=== PATIENT | male | born 1940 | race Caucasian/White ===

== ENCOUNTER → 2017-01-19 | Outpatient (CLI) | payer OTHER, MEDICARE ==
[2015-09-30 14:25] VITALS: BP 124/59
[2017-01-19 08:54] LABS: BASOPHILS # (AUTO) 0.1 X10^3/uL (0.0-0.1); BASOPHILS % (AUTO) 1.1 % (0.2-1.0); EOSINOPHILS # (AUTO) 0.1 x10^3/uL (0.0-0.2); EOSINOPHILS % (AUTO) 2.8 % (0.9-2.9); HEMATOCRIT 35.1 % (42.0-54.0); HEMOGLOBIN 11.8 g/dL (13.5-18.0); LYMPHOCYTES % (AUTO) 41.3 % (21.0-51.0); MEAN CORPUSCULAR HEMOGLOBIN 32.4 pg (27.0-34.0); MEAN CORPUSCULAR HGB CONC 33.7 g/dL (33.0-35.0); MEAN PLATELET VOLUME 7.8 fL (7.4-11.0); MONOCYTES # (AUTO) 0.4 x10^3/uL (0.3-0.8); NEUTROPHILS # (AUTO) 2.3 x10^3/uL (2.2-4.8); NEUTROPHILS % (AUTO) 46.8 % (42.0-75.0); PLATELET COUNT 183 X10^3/uL (150.0-450.0); RED BLOOD COUNT 3.65 X10^6/uL (4.7-6.0); RED CELL DISTRIBUTION WIDTH 13.7 % (11.6-16.5); WHITE BLOOD COUNT 4.9 X10^3/uL (3.6-10.0)
[2017-01-19 09:01] LABS: ALANINE AMINOTRANSFERASE 31 Units/L (12-78); ALBUMIN 3.6 g/dL (3.4-5.0); ALKALINE PHOSPHATASE 67 Units/L (46-116); ASPARTATE AMINO TRANSFERASE 24 Units/L (15-37); BLOOD UREA NITROGEN 18 mg/dL (7-18); CALCIUM 9.1 mg/dL (8.5-10.1); CARBON DIOXIDE 29.2 mmol/L (21-32); CHLORIDE 104 mmol/L (98-107); CHOL/HDL RATIO 5.1 (0.0-5.0); CHOLESTEROL 163 mg/dL (0-200); COR NA(FOR HYPERGLY) 144 mmol/L (136-145); CREATININE 1.42 mg/dL (0.70-1.30); GLUCOSE 127 mg/dL (65-99); HDL CHOLESTEROL 32 mg/dL (40-60); PHOSPHORUS 3.9 mg/dL (2.6-4.7); SODIUM 143 mmol/L (136-145); TOTAL PROTEIN 7.2 g/dL (6.4-8.2); TRIGLYCERIDES 138 mg/dL (0-150); URIC ACID 5.7 mg/dL (3.5-7.2); eGFR BLACK RACES > 60 (>60); eGFR NON BLACK RACES 51 (>60)
== END ==
LOC: LAB 08:01
PROVIDERS: ATTEND Obstetrics & Gynecology Obstetrics
DX: I12.9 Hypertensive chronic kidney disease with stage 1 through stage 4 chronic kidney disease, or unspecified chronic kidney disease (principal); N18.3 Chronic kidney disease, stage 3 (moderate)
CPT/HCPCS: 36415; 80053; 80061; 80069; 84550; 85025

== ENCOUNTER → 2017-04-20 | Outpatient (CLI) | payer OTHER, MEDICARE ==
[2015-09-30 14:25] VITALS: BP 124/59
[2017-04-20 08:48] LABS: ALANINE AMINOTRANSFERASE 32 Units/L (12-78); ALBUMIN 3.7 g/dL (3.4-5.0); ALKALINE PHOSPHATASE 81 Units/L (46-116); ASPARTATE AMINO TRANSFERASE 25 Units/L (15-37); BLOOD UREA NITROGEN 16 mg/dL (7-18); CALCIUM 9.3 mg/dL (8.5-10.1); CARBON DIOXIDE 29.1 mmol/L (21-32); CHLORIDE 104 mmol/L (98-107); CHOL/HDL RATIO 3.7 (0.0-5.0); CHOLESTEROL 153 mg/dL (0-200); GLUCOSE 109 mg/dL (65-99); HDL CHOLESTEROL 41 mg/dL (40-60); SODIUM 142 mmol/L (136-145); TOTAL PROTEIN 7.3 g/dL (6.4-8.2); TRIGLYCERIDES 112 mg/dL (0-150); eGFR BLACK RACES > 60 (>60); eGFR NON BLACK RACES > 60 (>60)
[2017-04-20 08:51] LABS: HEMOGLOBIN A1C 5.9 % (4.5-6.2)
[2017-04-20 08:53] LABS: BASOPHILS % (AUTO) 0.9 % (0.2-1.0); EOSINOPHILS # (AUTO) 0.2 x10^3/uL (0.0-0.2); EOSINOPHILS % (AUTO) 3.2 % (0.9-2.9); HEMATOCRIT 33.7 % (42.0-54.0); HEMOGLOBIN 11.6 g/dL (13.5-18.0); LYMPHOCYTES # (AUTO) 1.9 X10^3/uL (1.3-2.9); LYMPHOCYTES % (AUTO) 38.7 % (21.0-51.0); MEAN CORPUSCULAR HEMOGLOBIN 33.1 pg (27.0-34.0); MEAN CORPUSCULAR HGB CONC 34.6 g/dL (33.0-35.0); MEAN CORPUSCULAR VOLUME 95.8 fL (80.0-100.0); MEAN PLATELET VOLUME 7.8 fL (7.4-11.0); MONOCYTES # (AUTO) 0.4 x10^3/uL (0.3-0.8); MONOCYTES % (AUTO) 7.8 % (0.0-13.0); NEUTROPHILS # (AUTO) 2.5 x10^3/uL (2.2-4.8); NEUTROPHILS % (AUTO) 49.4 % (42.0-75.0); PLATELET COUNT 153 X10^3/uL (150.0-450.0); RED BLOOD COUNT 3.51 X10^6/uL (4.7-6.0); RED CELL DISTRIBUTION WIDTH 13.1 % (11.6-16.5)
== END ==
LOC: LAB 07:17
PROVIDERS: ATTEND Obstetrics & Gynecology Obstetrics
DX: E11.9 Type 2 diabetes mellitus without complications (principal); Z86.010 Personal history of colon polyps
CPT/HCPCS: 36415; 80053; 80061; 83036; 83525; 85025

== ENCOUNTER → 2017-04-23 | Outpatient (CLI) | payer OTHER, MEDICARE ==
[2015-09-30 14:25] VITALS: BP 124/59
[2017-04-23 20:18] LABS: CREATININE,URINE 62.31 mg/dL (40-278); MICROALBUMIN,URINE 15.2 mg/L
== END ==
LOC: LAB 19:36
PROVIDERS: ATTEND Obstetrics & Gynecology Obstetrics
DX: E11.9 Type 2 diabetes mellitus without complications (principal)
CPT/HCPCS: 82043

== ENCOUNTER → 2017-04-27 | Outpatient (CLI) | payer OTHER, MEDICARE ==
[2015-09-30 14:25] VITALS: BP 124/59
== END ==
LOC: LAB 05:52
PROVIDERS: ATTEND Internal Medicine Gastroenterology
DX: Z86.010 Personal history of colon polyps (principal)
CPT/HCPCS: 82270

== ENCOUNTER → 2017-05-18 | Outpatient (CLI) | payer OTHER, MEDICARE ==
[2015-09-30 14:25] VITALS: BP 124/59
[2017-05-18 06:52] LABS: BASOPHILS # (AUTO) 0.1 X10^3/uL (0.0-0.1); BASOPHILS % (AUTO) 1.2 % (0.2-1.0); EOSINOPHILS # (AUTO) 0.1 x10^3/uL (0.0-0.2); EOSINOPHILS % (AUTO) 1.6 % (0.9-2.9); HEMATOCRIT 31.4 % (42.0-54.0); HEMOGLOBIN 10.9 g/dL (13.5-18.0); LYMPHOCYTES # (AUTO) 3.5 X10^3/uL (1.3-2.9); LYMPHOCYTES % (AUTO) 61.6 % (21.0-51.0); MEAN CORPUSCULAR HGB CONC 34.5 g/dL (33.0-35.0); MEAN CORPUSCULAR VOLUME 95.6 fL (80.0-100.0); MEAN PLATELET VOLUME 7.2 fL (7.4-11.0); MONOCYTES # (AUTO) 0.4 x10^3/uL (0.3-0.8); MONOCYTES % (AUTO) 6.9 % (0.0-13.0); NEUTROPHILS # (AUTO) 1.6 x10^3/uL (2.2-4.8); NEUTROPHILS % (AUTO) 28.7 % (42.0-75.0); PLATELET COUNT 182 X10^3/uL (150.0-450.0); RED BLOOD COUNT 3.29 X10^6/uL (4.7-6.0); RED CELL DISTRIBUTION WIDTH 13.1 % (11.6-16.5); WHITE BLOOD COUNT 5.7 X10^3/uL (3.6-10.0)
[2017-05-18 07:10] LABS: HEMOGLOBIN A1C 5.2 % (4.5-6.2)
[2017-05-18 07:29] LABS: PLATELET MORPHOLOGY COMMENT NORMAL (NORMAL)
[2017-05-18 07:55] LABS: ALBUMIN 3.7 g/dL (3.4-5.0); BLOOD UREA NITROGEN 13 mg/dL (7-18); CALCIUM 9.1 mg/dL (8.5-10.1); CARBON DIOXIDE 25.4 mmol/L (21-32); CHLORIDE 105 mmol/L (98-107); CHOL/HDL RATIO 3.9 (0.0-5.0); CHOLESTEROL 141 mg/dL (0-200); COR NA(FOR HYPERGLY) 139 mmol/L (136-145); CREATININE 1.43 mg/dL (0.70-1.30); GLUCOSE 117 mg/dL (65-99); HDL CHOLESTEROL 36 mg/dL (40-60); PHOSPHORUS 3.8 mg/dL (2.6-4.7); SODIUM 139 mmol/L (136-145); TRIGLYCERIDES 121 mg/dL (0-150); eGFR BLACK RACES > 60 (>60); eGFR NON BLACK RACES 51 (>60)
== END ==
LOC: LAB 06:30
PROVIDERS: ATTEND Internal Medicine
DX: I12.9 Hypertensive chronic kidney disease with stage 1 through stage 4 chronic kidney disease, or unspecified chronic kidney disease (principal); N18.3 Chronic kidney disease, stage 3 (moderate); E11.29 Type 2 diabetes mellitus with other diabetic kidney complication
CPT/HCPCS: 36415; 80061; 80069; 83036; 85025

== ENCOUNTER → 2017-08-10 | Outpatient (CLI) | payer OTHER, MEDICARE ==
[2015-09-30 14:25] VITALS: BP 124/59
[2017-08-10 09:08] LABS: BASOPHILS % (AUTO) 0.9 % (0.2-1.0); EOSINOPHILS # (AUTO) 0.1 x10^3/uL (0.0-0.2); EOSINOPHILS % (AUTO) 2.1 % (0.9-2.9); HEMATOCRIT 31.6 % (42.0-54.0); HEMOGLOBIN 10.8 g/dL (13.5-18.0); LYMPHOCYTES # (AUTO) 2.3 X10^3/uL (1.3-2.9); LYMPHOCYTES % (AUTO) 53.4 % (21.0-51.0); MEAN CORPUSCULAR HEMOGLOBIN 32.5 pg (27.0-34.0); MEAN CORPUSCULAR HGB CONC 34.3 g/dL (33.0-35.0); MEAN CORPUSCULAR VOLUME 94.8 fL (80.0-100.0); MEAN PLATELET VOLUME 7.3 fL (7.4-11.0); MONOCYTES # (AUTO) 0.3 x10^3/uL (0.3-0.8); MONOCYTES % (AUTO) 6.6 % (0.0-13.0); NEUTROPHILS # (AUTO) 1.6 x10^3/uL (2.2-4.8); PLATELET COUNT 164 X10^3/uL (150.0-450.0); RED BLOOD COUNT 3.34 X10^6/uL (4.7-6.0); RED CELL DISTRIBUTION WIDTH 13.4 % (11.6-16.5); WHITE BLOOD COUNT 4.3 X10^3/uL (3.6-10.0)
[2017-08-10 09:27] LABS: HEMOGLOBIN A1C 5.3 % (4.5-6.2)
[2017-08-10 09:59] LABS: ALBUMIN 3.5 g/dL (3.4-5.0); BLOOD UREA NITROGEN 15 mg/dL (7-18); CALCIUM 9.6 mg/dL (8.5-10.1); CARBON DIOXIDE 30.6 mmol/L (21-32); CHLORIDE 103 mmol/L (98-107); CHOL/HDL RATIO 3.7 (0.0-5.0); CHOLESTEROL 149 mg/dL (0-200); COR NA(FOR HYPERGLY) 142 mmol/L (136-145); CREATININE 1.28 mg/dL (0.70-1.30); HDL CHOLESTEROL 40 mg/dL (40-60); PHOSPHORUS 3.8 mg/dL (2.6-4.7); SODIUM 141 mmol/L (136-145); TRIGLYCERIDES 150 mg/dL (0-150); eGFR BLACK RACES > 60 (>60); eGFR NON BLACK RACES 58 (>60)
== END ==
LOC: LAB 08:37
PROVIDERS: ATTEND Internal Medicine
DX: I12.9 Hypertensive chronic kidney disease with stage 1 through stage 4 chronic kidney disease, or unspecified chronic kidney disease (principal); N18.3 Chronic kidney disease, stage 3 (moderate); E11.9 Type 2 diabetes mellitus without complications
CPT/HCPCS: 36415; 80061; 80069; 83036; 85025

== ENCOUNTER → 2018-02-15 | Outpatient (CLI) | payer OTHER, MEDICARE ==
[2015-09-30 14:25] VITALS: BP 124/59
[2018-02-15 07:23] LABS: HEMOGLOBIN A1C 5.2 %
[2018-02-15 07:26] LABS: BASOPHILS % (AUTO) 1.1 % (0.2-1.0); EOSINOPHILS # (AUTO) 0.1 x10^3/uL (0.0-0.2); EOSINOPHILS % (AUTO) 2.7 % (0.9-2.9); HEMATOCRIT 32.1 % (42.0-54.0); LYMPHOCYTES # (AUTO) 2.1 X10^3/uL (1.3-2.9); LYMPHOCYTES % (AUTO) 49.9 % (21.0-51.0); MEAN CORPUSCULAR HEMOGLOBIN 32.2 pg (27.0-34.0); MEAN CORPUSCULAR HGB CONC 34.2 g/dL (33.0-35.0); MEAN CORPUSCULAR VOLUME 94.1 fL (80.0-100.0); MEAN PLATELET VOLUME 7.2 fL (7.4-11.0); MONOCYTES # (AUTO) 0.3 x10^3/uL (0.3-0.8); MONOCYTES % (AUTO) 7.1 % (0.0-13.0); NEUTROPHILS # (AUTO) 1.6 x10^3/uL (2.2-4.8); NEUTROPHILS % (AUTO) 39.2 % (42.0-75.0); PLATELET COUNT 175 X10^3/uL (150.0-450.0); RED BLOOD COUNT 3.41 X10^6/uL (4.7-6.0); RED CELL DISTRIBUTION WIDTH 13.8 % (11.6-16.5); WHITE BLOOD COUNT 4.2 X10^3/uL (3.6-10.0)
[2018-02-15 07:32] LABS: ALANINE AMINOTRANSFERASE 32 Units/L (12-78); ALBUMIN 3.5 g/dL (3.4-5.0); ALKALINE PHOSPHATASE 64 Units/L (46-116); ASPARTATE AMINO TRANSFERASE 24 Units/L (15-37); BLOOD UREA NITROGEN 21 mg/dL (7-18); CALCIUM 9.1 mg/dL (8.5-10.1); CARBON DIOXIDE 29.2 mmol/L (21-32); CHLORIDE 103 mmol/L (98-107); CHOL/HDL RATIO 3.3 (0.0-5.0); CHOLESTEROL 177 mg/dL (0-200); CREATININE 1.25 mg/dL (0.70-1.30); HDL CHOLESTEROL 53 mg/dL (40-60); SODIUM 139 mmol/L (136-145); TOTAL PROTEIN 6.9 g/dL (6.4-8.2); TRIGLYCERIDES 96 mg/dL (0-150); eGFR BLACK RACES > 60 (>60); eGFR NON BLACK RACES 59 (>60)
[2018-02-15 08:16] LABS: CREATININE,URINE 296.58 mg/dL (40-278)
[2018-02-15 08:17] LABS: MICROALBUMIN,URINE 118.5 mg/L
== END ==
LOC: LAB 06:19
PROVIDERS: ATTEND Obstetrics & Gynecology Obstetrics
DX: I12.9 Hypertensive chronic kidney disease with stage 1 through stage 4 chronic kidney disease, or unspecified chronic kidney disease (principal); N18.3 Chronic kidney disease, stage 3 (moderate); E11.22 Type 2 diabetes mellitus with diabetic chronic kidney disease
CPT/HCPCS: 36415; 80053; 80061; 82043; 83036; 83525; 85025

== ENCOUNTER 2018-03-16 08:58 | Observation (INO) ==
--- NOTE | 2018-03-16 09:12 | DR.GENAD ---
HPI - HPI Comment HPI Comment: THIS MORNING, PATIENT HAD BRIEF SYNCOPAL EPISODE. LATER, WHILE HE WAS WALKING TO THE BATHROOM, HE FELT DIZZY AND FELL. HE INJURED RT SHOULDER AND IS HURTING CURRENTLY. STILL DIZZY. - Complaint/Symptoms Chief Complaint Doctors Comments: SYNCOPAL EPISODE AT HOME, DIZZINESS, RT SHOULDER PAIN.FALL. - Nurses notes reviewed Nurses Notes Review: Yes - Source History Provided: Patient, Family Member - Mode of Arrival Mode of Arrival: Stretcher - Timing Came on: Suddenly - Duration Duration: Since Onset Duration: Hours - Severity Severity: Moderate PMH - PMH Past Medical History: Angina, Anxiety, Arthritis, Coronary Artery Disease Past Surgical History: Yes Surgical History: Ortho Surgery - Family History Family Medical History: Heart Failure - Social History Do you use any recreational Drugs:: No ROS - Review of Systems Constitutional: No Symptoms Reported Eyes: No Symptoms Reported ENTM: No Symptoms Reported. negative: Ear Pain, Nose Discharge, Nose Congestion , Throat Pain Respiratoy: Short of Breath (ON EXERSION). negative: Productive Cough, Wheezing , Hemoptysis Cardiovascular: Syncope (AT HOME) Gastrointestinal/Abdominal: No Symptoms Reported Genitourinary: No Symptoms Reported Neurological: Dizziness Musculoskeletal: No Symptoms Reported Integumentary: No Symptoms Reported Hematologic/Lymphatic: No Symptoms Reported Endocrine: No Symptoms Reported All Other Systems: Reviewed and Negative PE - General Limitations: No Limitations General Appearance: Alert - Head Head Exam: Normal Inspection - Eyes Eye exam: Normal Appearance, PERRL, EOMI. negative: Scleral Icterus, Conjunctival Injection - ENT ENT Exam: Normal External Ear Exam External Ear Exam: Normal External Inspection TM/Canal Exam: Bilateral Normal Nose Exam: Normal Nose Exam Mouth Exam: Normal Inspection Throat Exam: Normal Inspection - Neck Neck Exam: Trachea Midline - Chest Chest Inspection: Symmetric Chest Wall Rise - Respiratory Respiratory Exam: Normal Lung Sounds Bilat Respiratory Exam: Bilateral Clear to Auscultation - Cardiovascular Cardiovascular Exam: Bradycardia - Abdominal Exam Abdominal Exam: Normal Bowel Sounds, Soft. negative: Tenderness - Extremities Extremities Exam: Tenderness (RT SHOULDER SWOLLEN AND TENDER.) - Back Back Exam: Normal Inspection - Neurologic Neurological Exam: Alert, Oriented X3, CN II-XII Intact. negative: Motor Sensory Deficit - Psychiatric Psychiatric Exam: Normal Affect, Normal Mood - Skin Skin Exam: Normal Color - Vital Signs Vitals: Blood Pressure 124/59 MDM - Additional Information Additional Information Obtained From: Family - Differential Diagnosis Differential Diagnosis: SYNCOPAL EPISODE, DIZZINESS, CVA, SHOULDER FR/SPRAIN Course - Treatment Treatment: SEE ORDERS. - Consultation Consultation Comments: DISCUSS PATIENT WITH DR. BLUM, HE WILL ADMIT PATIENT. - Education/Counseling Education/Counseling: Patient, Family, Education Educated On: Diagnosis ROR - Labs Reviewed Laboratory Results Reviewed?: Yes Result Diagrams: 03/17/18 04:19 03/17/18 04:19 - XRAY XRAY Findings: REPORT DISCUSS WITH PATIENT AND FAMILY. - EKG Rhythm: SB (EKG NOTED.) - Diagnosis Discharge Problem: Bradycardia, Dizziness Shoulder fracture, right Qualifiers: Encounter type: initial encounter Fracture type: closed Qualified Code(s): S42.91XA - Fracture of right shoulder girdle, part unspecified, initial encounter for closed fracture Episode of syncope Qualifiers: Syncope type: unspecified Qualified Code(s): R55 - Syncope and collapse - Discharge Plan Disposition: ADMITTED INPATIENT Condition: Stable
[2018-03-16 09:16] VITALS: BMI 23.3
[2018-03-16 09:40] LABS: BASOPHILS % (AUTO) 0.9 % (0.2-1.0); EOSINOPHILS # (AUTO) 0.1 x10^3/uL (0.0-0.2); EOSINOPHILS % (AUTO) 2.4 % (0.9-2.9); HEMATOCRIT 31.6 % (42.0-54.0); HEMOGLOBIN 10.8 g/dL (13.5-18.0); LYMPHOCYTES # (AUTO) 1.3 X10^3/uL (1.3-2.9); LYMPHOCYTES % (AUTO) 29.4 % (21.0-51.0); MEAN CORPUSCULAR HEMOGLOBIN 32.4 pg (27.0-34.0); MEAN CORPUSCULAR HGB CONC 34.3 g/dL (33.0-35.0); MEAN CORPUSCULAR VOLUME 94.4 fL (80.0-100.0); MEAN PLATELET VOLUME 7.1 fL (7.4-11.0); MONOCYTES # (AUTO) 0.3 x10^3/uL (0.3-0.8); MONOCYTES % (AUTO) 7.2 % (0.0-13.0); NEUTROPHILS # (AUTO) 2.6 x10^3/uL (2.2-4.8); NEUTROPHILS % (AUTO) 60.1 % (42.0-75.0); PLATELET COUNT 186 X10^3/uL (150.0-450.0); RED BLOOD COUNT 3.34 X10^6/uL (4.7-6.0); RED CELL DISTRIBUTION WIDTH 13.6 % (11.6-16.5); WHITE BLOOD COUNT 4.4 X10^3/uL (3.6-10.0)
[2018-03-16 09:52] LABS: BLOOD UREA NITROGEN 14 mg/dL (7-18); CALCIUM 9.1 mg/dL (8.5-10.1); CARBON DIOXIDE 30.4 mmol/L (21-32); CHLORIDE 102 mmol/L (98-107); COR NA(FOR HYPERGLY) 141 mmol/L (136-145); CREATININE 1.41 mg/dL (0.70-1.30); SODIUM 139 mmol/L (136-145); TROPONIN I < 0.02 ng/mL (0-1.5); eGFR NON BLACK RACES 52 (>60)
[2018-03-16 09:57] LABS: ALANINE AMINOTRANSFERASE 22 Units/L (12-78); ALBUMIN 3.4 g/dL (3.4-5.0); ALKALINE PHOSPHATASE 65 Units/L (46-116); ASPARTATE AMINO TRANSFERASE 22 Units/L (15-37); CREATINE KINASE 53 Units/L (39-308); CREATINE KINASE MB < 1.0 ng/mL (0-4.0); TOTAL PROTEIN 6.8 g/dL (6.4-8.2)
[2018-03-16 10:02] LABS: CKMB % 1.9 % (<4)
[2018-03-16 10:15] LABS: BILIRUBIN,URINE NEGATIVE (NEGATIVE); BLOOD/HEMOGLOBIN,URINE 5+ (NEGATIVE); GLUCOSE, URINE NEGATIVE (NEGATIVE); KETONES,URINE 1+ (NEGATIVE); LEUKOCYTE ESTERASE ,URINE 1+ (NEGATIVE); NITRITES,URINE NEGATIVE (NEGATIVE); PROTEIN,URINE 2+ (NEGATIVE); UROBILINOGEN,URINE NORMAL (NORMAL)
[2018-03-16 10:17] LABS: APPEARANCE,URINE CLOUDY (CLEAR); COLOR,URINE YELLOW (YELLOW)
--- NOTE | 2018-03-16 10:21 | CT ---
HEAD CT WITHOUT IV CONTRAST CLINICAL INDICATION: Syncope with fall TECHNIQUE: Axial CT images from skull base to vertex without IV contrast.Dose reduction techniques in cluding Automated Exposure Control (AEC) and adjustment of mA and kV were utlized. COMPARISON: None FINDINGS: Diffuse patchy and confluent white matter hypoattenuation with associated volume loss. There is no e vidence of acute infarction, intracranial hemorrhage, mass or mass effect, or abnormal extra-axial co llection. The density of the larger dural venous sinuses is normal. Age-related, ex-vacuo dilatation of the ventricles and sulci. The skull base and calvarium are normal. The included paranasal sinuses and mastoid air cells are predominantly clear. IMPRESSION: 1. No acute intracranial abnormality. Chronic microangiopathic changes and ex vacuo dilatation of the ventricles and sulci. Reported By:
[2018-03-16 10:22] LABS: BACTERIA,URINE TRACE /HPF (NEGATIVE); RBC,URINE TNTC /HPF (NONE SEEN); SQUAMOUS EPITHELIAL CELL,UR RARE /HPF (NEGATIVE)
[2018-03-16 10:23] LABS: MUCUS,URINE FEW /HPF (NEGATIVE)
--- NOTE | 2018-03-16 10:23 | RAD ---
HISTORY: Fall with shoulder pain Study: 3 views of the right shoulder. Comparison: None Findings: Acute fracture of the humeral neck seen only on one view. No dislocation. No gross soft tissue abnor malities. AC and glenohumeral osteoarthritis. IMPRESSION: 1. Acute proximal humerus fracture. 2. Osteoarthritis of the shoulder joint. Reported By:
--- NOTE | 2018-03-16 10:35 | RAD ---
HISTORY: Syncope and chest pain Study: Single view of the chest. Comparison: None. Findings: The cardiomediastinal silhouette is normal. No focal consolidations, pleural effusions or pneumothora x. Bilateral hyper expansion with coarsening of interstitial markings. IMPRESSION: 1. No acute cardiopulmonary process. 2. Findings of COPD. Reported By:
[2018-03-16] MEDS ORDERED: MORPHINE SULFATE INJ 2 MG INJ IVP ONE (13:41)
[2018-03-16] MEDS ORDERED: ZOFRAN INJ 4 MG VIAL IVP ONE (13:42)
[2018-03-16] MEDS ORDERED: ZOFRAN INJ 4 MG VIAL ONE (13:43)
[2018-03-16] MEDS ORDERED: MORPHINE SULFATE INJ 2 MG INJ ONE (13:44)
[2018-03-16] MEDS: NS 1000 ML 1,000 ML IV SCH (15:28)
--- NOTE | 2018-03-16 15:49 | CT ---
History: Status post fall with right shoulder pain, and fracture on radiograph. Technique: CT of the right shoulder without contrast. Multiple contiguous axial CT images of the right shoulder obtained without IV contrast. Sagittal and coronal reformatted images were reconstructed. Comparison:NONE Findings: There is a subtle nondisplaced fracture involving the surgical neck of the right humerus which extend s into the greater tuberosity. Distal end of the fracture extends through the medial cortex of the pr oximal humeral metaphysis. Fracture line does not extend into the articular surface of the humeral he ad. The glenoid appears intact. Remainder of the osseous structures appear intact. There is a small 2 mm intra-articular loose body noted along the anterior medial joint capsule seen on series 7, image 45 and coronal series 8, image 32. Impression: 1. Nondisplaced fracture of the proximal humerus involving surgical neck and greater tuberosity as de scribed above. There is a 2 mm intra-articular loose body noted. Reported By:
[2018-03-16 16:06] LABS: CREATINE KINASE 59 Units/L (39-308); CREATINE KINASE MB < 1.0 ng/mL (0-4.0); TROPONIN I < 0.02 ng/mL (0-1.5)
[2018-03-16 16:08] LABS: CKMB % 1.7 % (<4)
[2018-03-16] MEDS ORDERED: ELAVIL PO SCH (18:00)
[2018-03-16] MEDS: MORPHINE SULFATE INJ 2 MG INJ IVP PRN (18:56)
[2018-03-16] MEDS: COLACE CAP 100 MG PO SCH (20:12)
[2018-03-16] MEDS: SINEMET (PLAIN) 10/100 MG PO SCH (20:13)
[2018-03-16] MEDS: ELAVIL PO SCH (20:13)
[2018-03-16] MEDS: REGLAN TAB 10 MG PO SCH (20:14)
[2018-03-16] MEDS: PATIENT'S HOME MEDICATION (Ferrous Sulfate [Ferrous Sulfate] 325 MG) PO SCH (20:20)
[2018-03-16] MEDS: SAW PALMETTO 160 MG PO SCH (20:20)
[2018-03-16] MEDS: LOVAZA PO SCH (20:21)
[2018-03-16] MEDS ORDERED: DESYREL PO SCH (21:00)
[2018-03-16] MEDS ORDERED: [UNRECOGNIZED DRUG - OTHER] PO SCH (21:00)
[2018-03-16] MEDS ORDERED: TRAZODONE HCL 100 MG PO SCH (21:00)
[2018-03-16] MEDS ORDERED: OMEGA PO SCH (21:00)
[2018-03-16 21:25] LABS: CREATINE KINASE 74 Units/L (39-308); CREATINE KINASE MB < 1.0 ng/mL (0-4.0); TROPONIN I < 0.02 ng/mL (0-1.5)
[2018-03-16 21:27] LABS: CKMB % 1.4 % (<4)
[2018-03-17] MEDS: NS 1000 ML 1,000 ML IV SCH ×2 (05:03→17:13)
[2018-03-17 05:17] LABS: BASOPHILS % (AUTO) 0.7 % (0.2-1.0); EOSINOPHILS # (AUTO) 0.1 x10^3/uL (0.0-0.2); EOSINOPHILS % (AUTO) 1.1 % (0.9-2.9); HEMATOCRIT 28.1 % (42.0-54.0); HEMOGLOBIN 9.8 g/dL (13.5-18.0); LYMPHOCYTES # (AUTO) 1.8 X10^3/uL (1.3-2.9); LYMPHOCYTES % (AUTO) 30.9 % (21.0-51.0); MEAN CORPUSCULAR HEMOGLOBIN 33.1 pg (27.0-34.0); MEAN CORPUSCULAR VOLUME 94.6 fL (80.0-100.0); MEAN PLATELET VOLUME 7.2 fL (7.4-11.0); MONOCYTES # (AUTO) 0.7 x10^3/uL (0.3-0.8); NEUTROPHILS # (AUTO) 3.3 x10^3/uL (2.2-4.8); NEUTROPHILS % (AUTO) 55.3 % (42.0-75.0); PLATELET COUNT 163 X10^3/uL (150.0-450.0); RED BLOOD COUNT 2.97 X10^6/uL (4.7-6.0); RED CELL DISTRIBUTION WIDTH 13.4 % (11.6-16.5); WHITE BLOOD COUNT 5.9 X10^3/uL (3.6-10.0)
[2018-03-17 05:33] LABS: ALKALINE PHOSPHATASE 57 Units/L (46-116); ASPARTATE AMINO TRANSFERASE 19 Units/L (15-37); BLOOD UREA NITROGEN 14 mg/dL (7-18); CALCIUM 8.6 mg/dL (8.5-10.1); CARBON DIOXIDE 29.6 mmol/L (21-32); CHLORIDE 103 mmol/L (98-107); COR CA(FOR HYPOALB) 9.4 mg/dL (8.5-10.1); COR NA(FOR HYPERGLY) 138 mmol/L (136-145); CREATININE 1.21 mg/dL (0.70-1.30); MAGNESIUM 1.5 mg/dL (1.7-2.9); SODIUM 138 mmol/L (136-145); TOTAL PROTEIN 6.1 g/dL (6.4-8.2); eGFR NON BLACK RACES > 60 (>60)
[2018-03-17 05:49] LABS: ALANINE AMINOTRANSFERASE 17 Units/L (12-78)
[2018-03-17] MEDS: MORPHINE SULFATE INJ 2 MG INJ IVP PRN ×2 (06:34→21:19)
[2018-03-17] MEDS ORDERED: LEXAPRO ONE ×2 (08:03→20:11)
[2018-03-17] MEDS: PROTONIX TAB 40 MG PO SCH (08:18)
[2018-03-17] MEDS: PRAVACHOL PO SCH (08:19)
[2018-03-17] MEDS: ZyrTEC TAB 10 MG PO SCH (08:19)
[2018-03-17] MEDS: LEXAPRO PO SCH (08:19)
[2018-03-17] MEDS: ASPIRIN 81 MG CHEWTAB PO SCH (08:19)
[2018-03-17] MEDS: REGLAN TAB 10 MG PO SCH ×2 (08:19→20:29)
[2018-03-17] MEDS: SINEMET (PLAIN) 10/100 MG PO SCH ×2 (08:20→20:29)
[2018-03-17] MEDS: VITAMIN D3 PO SCH (08:20)
[2018-03-17] MEDS: SINGULAIR TAB 10 MG PO SCH (08:20)
[2018-03-17] MEDS: FLOMAX PO SCH (08:20)
[2018-03-17] MEDS: PLAVIX PO SCH (08:20)
[2018-03-17] MEDS: LOVAZA PO SCH ×2 (08:21→20:29)
[2018-03-17] MEDS: SAW PALMETTO 160 MG PO SCH (08:22)
[2018-03-17] MEDS: PATIENT'S HOME MEDICATION (Ferrous Sulfate [Ferrous Sulfate] 325 MG) PO SCH (08:22)
[2018-03-17] MEDS: ZINC SULFATE PO SCH (08:44)
[2018-03-17] MEDS ORDERED: COLACE CAP 100 MG PO SCH (09:00)
[2018-03-17] MEDS ORDERED: PATIENT'S HOME MEDICATION (Cetirizine Hcl [Zyrtec Allergy] 10 MG) PO SCH (09:00)
[2018-03-17] MEDS ORDERED: ZINC GLUCONATE 25 MG PO SCH (09:00)
[2018-03-17] MEDS ORDERED: FERROUS GLUCONATE PO SCH (09:00)
[2018-03-17] MEDS ORDERED: PATIENT'S HOME MEDICATION (Cholecalciferol (Vitamin D3) [Cholecalciferol (Vitamin D3)] 1 T PO SCH (09:00)
[2018-03-17] MEDS: COLACE CAP 100 MG PO SCH (20:28)
[2018-03-17] MEDS: ELAVIL PO SCH (20:28)
[2018-03-17] MEDS ORDERED: LEXAPRO PO SCH (21:00)
[2018-03-18] MEDS ORDERED: MORPHINE SULFATE INJ 2 MG INJ ONE (03:45)
[2018-03-18] MEDS: MORPHINE SULFATE INJ 2 MG INJ IVP PRN (03:51)
[2018-03-18] MEDS: NS 1000 ML 1,000 ML IV SCH (07:14)
[2018-03-18] MEDS ORDERED: LEXAPRO ONE (07:26)
[2018-03-18] MEDS: LEXAPRO PO SCH (08:14)
[2018-03-18] MEDS: VITAMIN D3 PO SCH (08:14)
[2018-03-18] MEDS: FLOMAX PO SCH (08:15)
[2018-03-18] MEDS: PRAVACHOL PO SCH (08:16)
[2018-03-18] MEDS: PLAVIX PO SCH (08:16)
[2018-03-18] MEDS: ZyrTEC TAB 10 MG PO SCH (08:17)
[2018-03-18] MEDS: PROTONIX TAB 40 MG PO SCH (08:17)
[2018-03-18] MEDS: SINGULAIR TAB 10 MG PO SCH (08:17)
[2018-03-18] MEDS: SINEMET (PLAIN) 10/100 MG PO SCH (08:17)
[2018-03-18] MEDS: ASPIRIN 81 MG CHEWTAB PO SCH (08:17)
[2018-03-18] MEDS: REGLAN TAB 10 MG PO SCH (08:18)
[2018-03-18] MEDS: LOVAZA PO SCH (08:18)
[2018-03-18] MEDS: ZINC SULFATE PO SCH (08:18)
[2018-03-18 16:02] VITALS: BP 99/58
--- NOTE | 2018-03-18 16:42 | DR.CONSULT ---
Consult - Consultation for Day of: Date: 03/17/18 - Chief Complaint Chief Complaint: RIGHT shoulder fracture and pain. - History of Present Illness History of Present Illness: patient 78-year-old male history of fall and sustained injury to the RIGHT shoulder. Was seen in the emergency room at [facility]. X-rays and computed tomography scan confirmed a RIGHT shoulder proximal humerus fracture. He was placed in a shoulder immobilizer. a consultation was placed for me. patient has a history of syncopal attacks and he had a recent syncopal attack and he had a fall. His mobility is fairly limited because of undiagnosed neurological condition. He currently uses walker for mobilizing. - Past Medical History Past Medical History: Angina, Anxiety, Arthritis, Coronary Artery Disease - Past Surgical History Surgical History: Ortho Surgery - Family History Family Medical History: Heart Failure - Social History Does patient currently use any type of tobacco product: No Have you used tobacco products in the last 12 months: No Type of Tobacco Use: Cigarettes How many years tobacco product used: 35 Does any household member use tobacco: No Alcohol Use: None Drug Use: Prescription Drugs - Medications Home Medications: No Known Drug Allergies Allergy (Verified 03/16/18 09:15) CONTINUE taking the following medications metformin 1 tab PO BID 03/16/18 [History] midodrine 5 mg PO TID 03/16/18 [History] New Prescriptions escitalopram oxalate [Lexapro] 20 mg PO ONCE #30 tab 03/18/18 [Rx] mirtazapine [Remeron] 15 mg PO ONCE #30 tab 03/18/18 [Rx] - Review of Systems Eyes: No Symptoms Reported ENT: No Symptoms Reported Respiratory: No Symptoms Reported Musculoskeletal: Shoulder Pain Skin: No Symptoms Reported - Physical Exam Vital Signs: Temperature 97.7 F Pulse Rate [Left Brachial] 56 Pulse Rate [Right Radial] 65 Pulse Rate 43 Respiratory Rate 18 Blood Pressure [Left Arm] 99/58 Blood Pressure [Right Arm] 146/67 Blood Pressure 163/73 O2 Sat by Pulse Oximetry 97 Oriented: Normal Eyes: Normal Ear: Normal Nose: Normal Throat: Normal Respiratory: Clear Throughout Cardiovascular: Normal : Normal Auscultation: Bowel Sounds: Normal Palpation: Normal Tenderness: Normal Skin: Normal Musculoskeletal: Right, Shoulder (examination of the RIGHT shoulder. Diffuse swelling noted. Minimal bruising noted of the RIGHT shoulder. No obvious abnormalities noted. No distal neurovascular deficit. Examination of elbow and hand normal.), Swelling, Tender - Plan Plan: patient 78-year-old male has RIGHT shoulder proximal humerus fracture. X- rays and CTs were reviewed. He has a very minimally displaced RIGHT proximal humerus fracture. Seems like a 3 part but it is fairly stable. Natural history treatment discussions were done with the patient as well as the . They want to proceed with nonsurgical intervention. Advised to follow-up in 2 weeks. - Allergies Allergies/Adverse Reactions: Allergies Allergy/AdvReac Type Severity Reaction Status Date / Time No Known Drug Allergies Allergy Verified 03/16/18 09:15
== END 2018-03-18 16:45 | disposition home or self-care (01) ==
LOC: ER 08:58 → MED/SURG 08:58
PROVIDERS: ADMIT Internal Medicine; ATTEND Obstetrics & Gynecology Obstetrics
DX: R94.31 Abnormal electrocardiogram [ECG] [EKG]; R00.1 Bradycardia, unspecified; Z79.899 Other long term (current) drug therapy; M25.511 Pain in right shoulder; I95.1 Orthostatic hypotension; W18.39XA Other fall on same level, initial encounter; R42 Dizziness and giddiness; I25.10 Atherosclerotic heart disease of native coronary artery without angina pectoris; K21.9 Gastro-esophageal reflux disease without esophagitis; Z79.1 Long term (current) use of non-steroidal anti-inflammatories (NSAID); S42.291A Other displaced fracture of upper end of right humerus, initial encounter for closed fracture; R06.02 Shortness of breath; F41.8 Other specified anxiety disorders
CPT/HCPCS: 36415; 70450; 71010; 71045; 73030; 73200; 80053; 81001; 82550; 82553; 83735; 84484; 85025; 93005; 93010; 94760; 96365; 96367; 96374; 96375; 97163; 99284; G0378; J2270; J2405; J7030